=== PATIENT | female | born 1940 | race Caucasian/White ===

== ENCOUNTER 2017-09-15 07:14 | Emergency (ER) | payer OTHER ==
[~2017-09-15] VITALS: Ht 167.6 cm; Wt 71.2 kg
[~2017-09-15 07:14] MED LIST: AUGMENTIN875 MG PO; B COMPLEX #11 EACH PO; CALCIUM + VITA1 EAC2 PO; CELEBREX200 MG PO; CELEXA10 MG PO; DAILY MULTIPLE1 EACH PO; DULERA 100 MCG/13 GM IH; FISH OIL 1,0001 EA10 PO; FLOVENT 22120 INHALA IH; FOLIC ACID1 MG PO; MEDROL4 MG PO; METHOTREXATE2.5 MG PO; MOTRIN600 MG PO; OMEPRAZOLE20 M2 PO; PREDNISONE1 MG PO; RAYOS2 MG PO; RECLAST5 MG/100 M IV; RESTASIS 01 DROP/0.4 BOTH EYES; ULTRACET1 TABLET PO; VENTOLIN HFA18 GM IH; VITAMIN D2000 INTUN PO
[2017-09-15] MEDS ORDERED: FLEXERIL10 MG PO (08:51)
[2017-09-15 09:01] VITALS: BP 116/70
== END 2017-09-15 09:02 | disposition home or self-care (01) ==
LOC: EME 07:14
DX: S46.812A Strain of other muscles, fascia and tendons at shoulder and upper arm level, left arm, initial encounter (principal); W10.9XXA Fall (on) (from) unspecified stairs and steps, initial encounter; Y92.008 Other place in unspecified non-institutional (private) residence as the place of occurrence of the external cause; K21.9 Gastro-esophageal reflux disease without esophagitis; K58.9 Irritable bowel syndrome, unspecified; Z87.891 Personal history of nicotine dependence; Z88.8 Allergy status to other drugs, medicaments and biological substances
CPT/HCPCS: 73030; 99281; 99284